=== PATIENT | male | born 1945 | race Caucasian/White ===

== ENCOUNTER 2016-04-07 20:39 | Inpatient (IN) | payer MEDICARE ==
[~2016-04-07] VITALS: Ht 172.7 cm; Wt 111.6 kg
[~2016-04-07 20:39] MED LIST: BYSTOLIC20 MG PO; DULO60CA6 PO; NAPR220C4 PO; OXYC1TAB7 PO; PAIN MEDICINE PO; TAMS0.4C2 PO
[2016-04-07] MEDS ORDERED: IV NORMAL SALINE 1000ML BAG 1,000 ML IV SCH (22:30)
[2016-04-07] MEDS: FENTANYL PF 100 MCG/2 ML VIAL. IV PRN (22:48)
[2016-04-07 23:15] VITALS: BP 150/79
[2016-04-07] MEDS ORDERED: INFLUENZA VAX SCREEN BY RX. MC ONE (23:45)
[2016-04-08 00:23] LABS: HEMATOCRIT 42.5 % (39.0-53.0); HEMOGLOBIN 13.9 g/dL (13.0-17.5); RED BLOOD COUNT 4.68 x10^6/uL (4.30-5.70); RED CELL DISTRIBUTION WIDTH 13.8 % (11.5-14.5); WHITE BLOOD COUNT 7.5 x10^3/uL (4.0-11.0)
[2016-04-08 00:31] LABS: CALCIUM 8.6 mg/dL (8.5-10.1); CREATININE 1.2 mg/dL (0.7-1.3); GFR 59.9; POTASSIUM 4.3 mmol/L (3.5-5.1)
[2016-04-08 00:51] LABS: INR 1.1 (0.8-1.1); PROTHROMBIN TIME PATIENT 13.1 SEC (11.7-14.0)
[2016-04-08] MEDS: FENTANYL PF 100 MCG/2 ML VIAL. IV PRN ×3 (01:23→18:38)
[2016-04-08 03:15] VITALS: BP 149/88
[2016-04-08 07:30] VITALS: BP 133/75
[2016-04-08 08:32] LABS: OBC FLU VALID
[2016-04-08] MEDS ORDERED: FLU VACC QUAD 2016-17 (36MOS+)/PF 0.5 ML SYRINGE. VAX IM ONE (09:00)
--- NOTE | 2016-04-08 09:04 | PDOC2 ---
GI CONSULT Reason For Consult: Unable to swallow HPI: HPI: 70 y/o male transferred from [facility]. Reports was eating chicken yesterday and midway through his meal was unable to initiate swallow. Denies globus, does not feel like food is stuck in esophagus/midchest. Wonders if starting meds for hip pain (records indication Percocet and Flexeril) could have caused symptoms, although had been tolerating both. Apparently was able to swallow liquids at [facility], then tried crackers and again felt like he couldn't "start" swallowing. Has been NPO here. H/o previous EGDs w/ dilation (believes at [facility] years ago) and admits to occasional dysphagia w/ solids but usually has the feeling that something is "stuck." Denies GERD, abd pain, weight loss, diarrhea, constipation, hematochezia/melena. CT head and CXR unrevealing at [facility]. Noted labs there show AST 217, [id number], Alk Phos 157. Last colonoscopy reportedly normal >10 years ago @ [facility]. PMH: PMH: HTN, depression, nephrolithiasis, appendectomy, cholecystectomy, left nephrectomy, splenectomy, ureteroscopy w/ stent and lithotripsy, adhesiolysis, left knee replacement, finger surgery, tonsillectomy Social History: Smoke: No ALCOHOL: none Drugs: None ROS: GEN: Denies fevers, chills, sweats HEENT: Denies blurred vision, sore throat CV: Denies chest pain RESP: Denies shortness of air, cough GI: Per HPI : Denies hematuria, dysuria ENDO: Denies weight changes NEURO: Denies confusion, dizziness MSK: Denies weakness, joint pain/swelling SKIN: Denies jaundice, pruritus VItals: Vitals: Vital Signs Date Time Temp Pulse Resp B/P Pulse Ox O2 Delivery O2 Flow Rate FiO2 04/08/16 07:30 97.7 65 18 133/75 95 Nasal Cannula 2.0 97.7 Labs: Labs: Laboratory Tests Test 04/07/16 23:44 04/08/16 07:00 White Blood Count 7.5x10^3/uL (4.0-11.0) Red Blood Count 4.68x10^6/uL (4.30-5.70) Hemoglobin 13.9g/dL (13.0-17.5) Hematocrit 42.5% (39.0-53.0) Mean Corpuscular Volume 91fL (79-100) Mean Corpuscular Hemoglobin 30pg (25-35) Mean Corpuscular Hemoglobin Concent 33g/dL (31-37) Red Cell Distribution Width 13.8% (11.5-14.5) Platelet Count 424x10^3/uL (140-400) Prothrombin Time 13.1SEC (11.7-14.0) Prothromb Time International Ratio 1.1 (0.8-1.1) Sodium Level 144mmol/L (136-145) Potassium Level 4.3mmol/L (3.5-5.1) Chloride Level 109mmol/L (98-107) Carbon Dioxide Level 30mmol/L (21-32) Anion Gap 5 (6-14) Blood Urea Nitrogen 17mg/dL (8-26) Creatinine 1.2mg/dL (0.7-1.3) Estimated GFR (Cockcroft-Gault) 59.9 Glucose Level 104mg/dL (70-99) Calcium Level 8.6mg/dL (8.5-10.1) Influenza Type A Antigen Negative (NEGATIVE) Influenza Type B Antigen Negative (NEGATIVE) Allergies: Coded Allergies: morphine (Verified Allergy, Mild, Palpitations, 04/07/16) metoclopramide (Verified Allergy, Unknown, THROAT SWELLED UP, 11/09/14) Medications: Current Medications Medications (Trade) Dose Ordered Sig/Basilio Route PRN Reason Start Time Stop Time Status Last Admin Dose Admin Fentanyl Citrate 25 mcg 25 mcg PRN Q2HR PRN IV PAIN 04/07/16 22:30 04/08/16 03:45 Sodium Chloride (Iv Sodium Chloride 0.9% 1000ml Bag) 1,000 ml @ 75 mls/hr [id number] IV 04/07/16 22:30 04/07/16 22:49 Imaging: Imaging: Per HPI. PE: GEN: NAD HEENT: Atraumatic, PERRL LUNGS: CTAB HEART: RRR ABD: NABS, S/ND/NT, obese EXTREMITY: No edema SKIN: No rashes, no jaundice NEURO/PSYCH: A & O 3 A/P: A/P: Dysphagia -sudden onset yesterday mid-meal, describes inability to initiate swallow -no globus/feeling of food bolus -tolerated liquids at [facility] but not crackers, has been NPO here -does admit to h/o dysphagia w/ solids, usually has the feeling that something is stuck -h/o esophageal dilation years ago, denies GERD -CT head ok Elevated LFTs Multiple abd surgeries CRC screen -reportedly normal >10 years ago -- D/w Dr. Tolbert. No emergent need for EGD - no obstruction if tolerating liquids. Okay to try clear liquids and ask for NUCLEAR TECHNICIAN eval. UPDATE EGD 12/28/[address] Peña: esophageal spasm, esophageal dilation to 50Fr, gastritis, prior pyloroplasty w/ mild deformity, normal small bowel. BRITTNEY PARIS Apr 08, 2016 09:04
[2016-04-08] MEDS ORDERED: BARIUM SULFATE 40% 148 GM PWD PO ONE (10:15)
[2016-04-08] MEDS ORDERED: MORPHINE SULFATE 4 MG/ML DISP.SYRIN. IV PRN (10:15)
--- NOTE | 2016-04-08 10:17 | PDOC1 ---
History and Physical Date of Admission Date of Admission DATE: 04/08/16 TIME: 10:11 Identification/Chief Complaint Chief Complaint unable to swallow Source Source: Caregiver, Chart review, Patient History of Present Illness History of Present Illness Mr. Khan, is a 70 y/o male transferred from [facility]. He has history of esoph stricture req. dilation from years ago. Yesterday, he could not swallow chicken. He felt some fullness in his neck, and was unable to initiate a swallow no pain, no nausea, did not vomiting, His says he sometimes spits up water like he has choked on it when he sits in his recliner. no weight loss, complains of severe right hip pain, had been sched for MRI hip, prior CT irreg, pain 08/01 hip Past Medical History Cardiovascular: HTN Psych: Depression (?, on cymbalta, does not report for pain) Musculoskeletal: Osteoarthritis (right hip pain, ) Family History Family History: No Significant Social History Smoke: No ALCOHOL: none Drugs: None Current Medications Current Medications Current Medications Fentanyl Citrate 25 mcg 25 mcg PRN Q2HR PRN IV PAIN Last administered on 03:45; Start 04/07/16 at 22:30 Sodium Chloride (Iv Sodium Chloride 0.9% 1000ml Bag) 1,000 ml @ 75 mls/hr [id number] IV Last administered on 04/07/16 22:49; Start 04/07/16 at 22:30 Info (Do NOT chart on this placeholder) 0.5 each 1X ONCE MC ; Start 04/07/16 at 23:45; Stop 04/07/16 at 23:46; Status UNV Influenza Virus Vaccine Quadrival (Fluarix Quad [id number] Syringe) 0.5 ml ONCE ONCE VAX IM ; Start 04/08/16 at 09:00; Stop 04/08/16 at 09:01; Status DC Active Scripts Active Reported [Pain Medicine] PO PRN PRN Aleve (Naproxen Sodium) 220 Mg Capsule 220 Mg PO PRN DAILY Cymbalta (Duloxetine Hcl) 60 Mg Capsule.dr 60 Mg PO DAILY Bystolic (Nebivolol Hcl) 20 Mg Tablet 20 Mg PO DAILY Tamsulosin Hcl 0.4 Mg Cap.er.24h 0.4 Mg PO DAILY Allergies Allergies: Coded Allergies: morphine (Verified Allergy, Mild, Palpitations, 2/14/17) metoclopramide (Verified Allergy, Unknown, THROAT SWELLED UP, 11/09/14) ROS General: No: Appetite, Chills, Fatigue, Malaise, Night Sweats, Other PSYCHOLOGICAL ROS: No: Anxiety, Behavioral Disorder, Concentration difficultie , Decreased libido, Depression, Disorientation, Hallucinations, Hostility, Irritablity, Memory difficulties, Mood Swings, Obsessive thoughts, Other, Physical abuse, Sexual abuse, Sleep disturbances, Suicidal ideation Eyes: No Blurry vision, No Decreased vision, No Double vision, No Dry eyes, No Excessive tearing, No Eye Pain, No Itchy Eyes, No Loss of vision, No Other, No Photophobia, No Scotomata, No Uses contacts, No Uses glasses HEENT: YES: Heacaches, No: Epistaxis, Hearing change, Nasal congestion, Nasal discharge, Oral lesions, Other, Sinus pain, Sneezing, Snoring, Sore Throat, Tinnitus, Vertigo, Visual Changes, Vocal changes ENDOCRINE: No: Breast Changes, Galactorrhea, Hair Pattern Changes, Hot Flashes , Malaise/lethargy, Mood Swings, Other, Palpitations, Polydipsia/polyuria, Skin Changes, Temperature Intolerance, Unexpected Weight Changes Respiratory: No: Cough, Hemoptysis, Orthopnea, Other, Pleuritic Pain, SOB with excertion, Shortness of breath, Sputum Changes, Stridor, Tachypnea, Wheezing Cardiovascular: No Chest Pain, No Edema, No Lt Headedness, No Orthopnea, No Other, No Palpitations, No Paroxysmal Noc. Dyspnea Musculoskeletal: Yes Joint Pain, Yes Joint Stiffness, Yes Pain In: (right hip) Neurological: No Behavorial Changes, No Bowel/Bladder ControlChng, No Confusion , No Dizziness, No Gait Disturbance, No Headaches, No Impaired Coord/balance, No Memory Loss, No Numbness/Tingling, No Other, No Seizures, No Speech Problems , No Tremors, No Visual Changes, No Weakness Skin: No Acne, No Dry Skin, No Eczema, No Hair Changes, No Lumps, No Mole Changes, No Mottling, No Nail Changes, No Other, No Pruritus, No Rash, No Skin Lesion Changes Physical Exam General: Alert, Oriented X3, Cooperative, No acute distress HEENT: Atraumatic, PERRLA, EOMI, Other (op dry) Lungs: Normal air movement Heart: S1S2, no murmurs Abdomen: Normal bowel sounds (obese, NT), Soft Extremities: No cyanosis Skin: No breakdown, Other (dry turgor) Neuro: Normal gait, Normal speech Psych/Mental Status: Mental status NL, Mood NL Vitals Vitals Vital Signs Date Time Temp Pulse Resp B/P Pulse Ox O2 Delivery O2 Flow Rate FiO2 04/08/16 07:30 97.7 65 18 133/75 95 Nasal Cannula 2.0 97.7 Labs Labs Laboratory Tests Test 04/07/16 23:44 04/08/16 07:00 White Blood Count 7.5x10^3/uL (4.0-11.0) Red Blood Count 4.68x10^6/uL (4.30-5.70) Hemoglobin 13.9g/dL (13.0-17.5) Hematocrit 42.5% (39.0-53.0) Mean Corpuscular Volume 91fL (79-100) Mean Corpuscular Hemoglobin 30pg (25-35) Mean Corpuscular Hemoglobin Concent 33g/dL (31-37) Red Cell Distribution Width 13.8% (11.5-14.5) Platelet Count 424x10^3/uL (140-400) Prothrombin Time 13.1SEC (11.7-14.0) Prothromb Time International Ratio 1.1 (0.8-1.1) Sodium Level 144mmol/L (136-145) Potassium Level 4.3mmol/L (3.5-5.1) Chloride Level 109mmol/L (98-107) Carbon Dioxide Level 30mmol/L (21-32) Anion Gap 5 (6-14) Blood Urea Nitrogen 17mg/dL (8-26) Creatinine 1.2mg/dL (0.7-1.3) Estimated GFR (Cockcroft-Gault) 59.9 Glucose Level 104mg/dL (70-99) Calcium Level 8.6mg/dL (8.5-10.1) Influenza Type A Antigen Negative (NEGATIVE) Influenza Type B Antigen Negative (NEGATIVE) Laboratory Tests Test 04/07/16 23:44 04/08/16 07:00 White Blood Count 7.5x10^3/uL (4.0-11.0) Red Blood Count 4.68x10^6/uL (4.30-5.70) Hemoglobin 13.9g/dL (13.0-17.5) Hematocrit 42.5% (39.0-53.0) Mean Corpuscular Volume 91fL (79-100) Mean Corpuscular Hemoglobin 30pg (25-35) Mean Corpuscular Hemoglobin Concent 33g/dL (31-37) Red Cell Distribution Width 13.8% (11.5-14.5) Platelet Count 424x10^3/uL (140-400) Prothrombin Time 13.1SEC (11.7-14.0) Prothromb Time International Ratio 1.1 (0.8-1.1) Sodium Level 144mmol/L (136-145) Potassium Level 4.3mmol/L (3.5-5.1) Chloride Level 109mmol/L (98-107) Carbon Dioxide Level 30mmol/L (21-32) Anion Gap 5 (6-14) Blood Urea Nitrogen 17mg/dL (8-26) Creatinine 1.2mg/dL (0.7-1.3) Estimated GFR (Cockcroft-Gault) 59.9 Glucose Level 104mg/dL (70-99) Calcium Level 8.6mg/dL (8.5-10.1) Influenza Type A Antigen Negative (NEGATIVE) Influenza Type B Antigen Negative (NEGATIVE) VTE Prophylaxis Ordered VTE Prophylaxis Devices: Yes VTE Pharmacological Prophylaxi: Contraindicated (may need EGD) Assessment/Plan Assessment/Plan dysphagia globus sensation unable to swallow, GI consulted, Speech consulted, video ordered if warranted by Speech eval, obesity, BMI 37 Hip pain, consult ortho, may need MRI, primary care had ordered outpatient CARMEN FINCH MD Apr 08, 2016 10:17
[2016-04-08] MEDS ORDERED: IV DEXTROSE 5 %-0.45 % NACL 1,000 ML IV ONE (10:30)
[2016-04-08] MEDS ORDERED: KETOROLAC 15 MG/ML VIAL. IV ONE (10:30)
[2016-04-08] MEDS: DULOXETINE HCL 30 MG CAPSULE.DR. PO SCH (10:56)
[2016-04-08] MEDS: METOPROLOL TART IMMED RELEASE 50 MG TABLET PO SCH ×2 (10:57→21:14)
[2016-04-08] MEDS: TAMSULOSIN 0.4 MG CAP.ER.24H. PO SCH (10:57)
[2016-04-08] MEDS: OXYCODONE/APAP 7.5/325 TABLET. PO PRN ×3 (10:57→23:49)
[2016-04-08 11:00] VITALS: BP 118/76
[2016-04-08] MEDS ORDERED: CYCL10TA2 PO (11:38)
[2016-04-08] MEDS ORDERED: OXYC1TAB9 PO (11:38)
[2016-04-08] MEDS ORDERED: BARIUM SULFATE 60% 355 ML SUSP PO ONE (13:00)
[2016-04-08] MEDS ORDERED: BARIUM SULFATE 96% 397 GM ENEMA. PR ONE (13:00)
--- NOTE | 2016-04-08 14:04 | RAD ---
Video dysphasia study, 04/08/2016: History: Dysphasia, food sticking The swallowing mechanism was examined fluoroscopically in the lateral projection with the patient ingested a variety of food materials mixed with barium. 1.1 minutes of fluoroscopy time was utilized. One fluoroscopic video loop was recorded by a member of the speech Department. The patient demonstrated good oral control of the barium materials. There is normal transit of the majority of the barium through the cervical esophagus. One episode of minimal transient laryngeal penetration was noted with the thin liquid. No raul aspiration was seen. A normal mild cricopharyngeal impression upon the cervical esophagus was noted. The patient ingested the thicker materials and barium coated solids without difficulty. There are mild anterior cervical spurs in the lower cervical esophagus. IMPRESSION: No significant abnormality is detected.
--- NOTE | 2016-04-08 14:42 | RAD ---
Esophagram, 04/08/2016: History: Dysphagia, food gets stuck 2.5 minutes of fluoroscopy time was utilized for this exam. 9 static and dynamic fluoroscopic sequences were recorded. There is a mild posterior impression upon the lower cervical esophagus due to a prominent cervical spur. There is no obstruction to flow of the barium through the cervical esophagus. The esophageal peristalsis appears normal. No hiatal hernia or gastroesophageal reflux was demonstrated. There are surgical clips in the region of the proximal aspect of the stomach. IMPRESSION: No significant esophageal abnormality is detected.
[2016-04-08 15:10] VITALS: BP 124/61
[2016-04-08] MEDS: PANTOPRAZOLE 40 MG TABLET. PO SCH (15:30)
[2016-04-08 19:25] VITALS: BP 117/48
[2016-04-08 23:48] VITALS: BP 133/61
[2016-04-09 07:00] VITALS: BP 170/80
[2016-04-09] MEDS: PANTOPRAZOLE 40 MG TABLET. PO SCH (07:30)
[2016-04-09] MEDS: DULOXETINE HCL 30 MG CAPSULE.DR. PO SCH (07:34)
[2016-04-09] MEDS: TAMSULOSIN 0.4 MG CAP.ER.24H. PO SCH (07:35)
[2016-04-09] MEDS: METOPROLOL TART IMMED RELEASE 50 MG TABLET PO SCH ×2 (07:35→20:25)
[2016-04-09] MEDS: FENTANYL PF 100 MCG/2 ML VIAL. IV PRN ×2 (08:16→20:28)
--- NOTE | 2016-04-09 09:10 | RAD ---
Pelvis with right hip, 3 views, 04/09/2016: History: Hip pain Contrast material from a previous study is present in the colon partially obscuring the upper pelvis. There is moderate spurring along the lateral margins of both iliac bones. There is mild degenerative change at the symphysis pubis. Mild deformity of the right pubic bone is probably due to old trauma. There is mild narrowing of the hip joints with mild marginal spurring. No acute fracture or dislocation is identified. IMPRESSION: 1. Mild degenerative change at both hips. 2. No acute bony abnormality is detected.
[2016-04-09] MEDS ORDERED: CYCLOBENZAPRINE 10 MG TABLET. PO PRN ×2 (10:30→21:00)
[2016-04-09] MEDS ORDERED: ONDANSETRON PF 4 MG/2 ML VIAL. IV PRN (10:30)
[2016-04-09] MEDS ORDERED: ACETAMINOPHEN 500 MG TABLET PO PRN (10:30)
[2016-04-09] MEDS ORDERED: OXYCODONE/APAP 10/325 TABLET. PO PRN ×2 (10:30)
[2016-04-09 11:00] VITALS: BP 196/80
[2016-04-09] MEDS ORDERED: hydrALAZINE 20 MG/ML VIAL. IVP PRN (12:00)
[2016-04-09] MEDS ORDERED: IV RINGERS,LACTATED 1000ML 1,000 ML IV SCH (13:28)
[2016-04-09] MEDS: IV RINGERS,LACTATED 1000ML 1,000 ML IV SCH ×2 (13:34→21:34)
[2016-04-09] MEDS ORDERED: LIDOCAINE 1% 1 ML SYRINGE. ID PRN (13:45)
[2016-04-09] MEDS ORDERED: FENTANYL PF 100 MCG/2 ML VIAL. IV PRN ×2 (13:45)
[2016-04-09] MEDS ORDERED: MIDAZOLAM HCL 2 MG/2 ML VIAL. IV PRN (13:45)
--- NOTE | 2016-04-09 13:52 | RAD ---
Examination: MRI pelvis without contrast HISTORY Hip pain, right hip pain COMPARISON None available. TECHNIQUE Multiplanar, multisequence MR imaging of the pelvis were performed without contrast. Findings: The bilateral femoral heads within the acetabulum. There is no acute fracture/ dislocation identified. Mild to moderate joint space loss identified in the bilateral hip joints with a small osteophyte formation identified in the superior acetabulum bilaterally likely due to degeneration. The attachment of the bilateral hamstring tendons to the ischial tuberosity, attachment of the gluteal tendons to the greater trochanter, attachment of the bilateral iliopsoas tendon to the lesser trochanter, attachment of the rectus femoris tendons to the anterior inferior iliac spine grossly appears intact. There is minimal increased T2 signal identified just lateral to the greater trochanteric region at the site of attachment the gluteal tendons, right greater than left likely mild tendinosis. There is faint tiny focus of T2 signal identified lateral to the right greater trochanter, probably tiny bursal fluid. The bilateral sciatic nerves grossly appears unremarkable. The urinary bladder is mildly distended. Moderate enlarged prostate gland. IMPRESSION 1. No acute osseous findings. 2. Minimal increased T2 signal identified lateral to the greater trochanter probable mild tendinosis. There is a tiny focus of T2 signal identified lateral to the greater trochanter region on the right could be minimal trochanteric bursal fluid. Electronically signed by: Papito Huddleston (Apr 09, 2016 13:52:02)
[2016-04-09] MEDS ORDERED: PROPOFOL 0 ML IV ONE (13:57)
--- NOTE | 2016-04-09 14:11 | PDOC4 ---
Operative Note Operative Note EGD with dilation Meds propofol per anesthesia Pre-op dx dysphagia/hx esophageal stricture Post op dx- Schatzki ring S/p 54 FR Piper dilation non-erosive gastritis Plan resume diet and activity may release home when tolerating po CHERELLE VALENZUELA MD Apr 09, 2016 14:11
[2016-04-09 15:00] VITALS: BP 131/60
--- NOTE | 2016-04-09 15:20 | PDOC ---
PROGRESS NOTES Chief Complaint Chief Complaint s/p EGD with dilatation Obesity HTN OA,. left hip s/p recent injection History of Present Illness History of Present Illness s/p EGD with dilattaion and eating fine Wants to go home but left hip is bothersome HAd recent injection 1 week, no relief Took 3x the hydrocodones and flexeril given by ER, no avail Awaiting Bone scan MRI reviewed, OA with mild fluid, possible Plan Await Bone scan Trial of lidoderm patch? Await further recs from ortho if any Did discuss about giving time for meds to work including his PO flexeril and pO hydrocodones from er dw RN Time 30 mins Vitals Vitals Vital Signs Date Time Temp Pulse Resp B/P Pulse Ox O2 Delivery O2 Flow Rate FiO2 04/09/16 14:36 98.4 79 20 121/63 99 Nasal Cannula 2.0 98.4 Physical Exam General: Alert, Oriented X3, Cooperative, No acute distress Heart: Regular rate Lungs: Clear Abdomen: Normal bowel sounds (obese, NT), Soft Extremities: No cyanosis Skin: No breakdown, Other (dry turgor) Review of Systems Review of Systems left hip pain no cp, soa, abd pain Assessment and Plan Assessmemt and Plan Problems Medical Problems: (1) Dysphagia, unspecified Status: Acute Problems: Comment Review of Relevant I have reviewed the following items michael (where applicable) has been applied. Labs Laboratory Tests Test 04/07/16 23:44 04/08/16 07:00 White Blood Count 7.5x10^3/uL (4.0-11.0) Red Blood Count 4.68x10^6/uL (4.30-5.70) Hemoglobin 13.9g/dL (13.0-17.5) Hematocrit 42.5% (39.0-53.0) Mean Corpuscular Volume 91fL (79-100) Mean Corpuscular Hemoglobin 30pg (25-35) Mean Corpuscular Hemoglobin Concent 33g/dL (31-37) Red Cell Distribution Width 13.8% (11.5-14.5) Platelet Count 424x10^3/uL (140-400) Prothrombin Time 13.1SEC (11.7-14.0) Prothromb Time International Ratio 1.1 (0.8-1.1) Sodium Level 144mmol/L (136-145) Potassium Level 4.3mmol/L (3.5-5.1) Chloride Level 109mmol/L (98-107) Carbon Dioxide Level 30mmol/L (21-32) Anion Gap 5 (6-14) Blood Urea Nitrogen 17mg/dL (8-26) Creatinine 1.2mg/dL (0.7-1.3) Estimated GFR (Cockcroft-Gault) 59.9 Glucose Level 104mg/dL (70-99) Calcium Level 8.6mg/dL (8.5-10.1) Influenza Type A Antigen Negative (NEGATIVE) Influenza Type B Antigen Negative (NEGATIVE) Medications Current Medications Fentanyl Citrate 25 mcg 25 mcg PRN Q2HR PRN IV PAIN Last administered on 08:16; Start 04/07/16 at 22:30 Sodium Chloride (Iv Sodium Chloride 0.9% 1000ml Bag) 1,000 ml @ 75 mls/hr [id number] IV Last administered on 04/07/16 22:49; Start 04/07/16 at 22:30; Stop 04/08/16 at 10:12; Status DC Info (Do NOT chart on this placeholder) 0.5 each 1X ONCE MC ; Start 04/07/16 at 23:45; Stop 04/07/16 at 23:46; Status UNV Influenza Virus Vaccine Quadrival (Fluarix Quad [id number] Syringe) 0.5 ml ONCE ONCE VAX IM Last administered on 04/08/16 10:32; Start 04/08/16 at 09:00; Stop 04/08/16 at 09:01; Status DC Morphine Sulfate 4 mg PRN Q2HR PRN IV PAIN; Start 04/08/16 at 10:15; Status Cancel Ketorolac Tromethamine (Toradol) 15 mg 1X ONCE IV Last administered on 10:56; Start 04/08/16 at 10:30; Stop 04/08/16 at 10:31; Status DC Barium Sulfate (Varibar Thin Liquid) 148 gm 1X ONCE PO Last administered on 14:01; Start 04/08/16 at 10:15; Stop 04/08/16 at 10:16; Status DC Tamsulosin HCl (Flomax) 0.4 mg DAILY PO Last administered on 04/08/16 10:57; Start 04/08/16 at 11:00 Duloxetine HCl (Cymbalta) 60 mg DAILY PO Last administered on 04/08/16 10:56; Start 04/08/16 at 11:00 Metoprolol Tartrate (Lopressor) 50 mg BID PO Last administered on 04/08/16 21: 14; Start 04/08/16 at 11:00 Oxycodone/ Acetaminophen (Percocet 7.5/ 325) 1 tab PRN Q4HRS PRN PO PAIN Last administered on 04/08/16 23:49; Start 04/08/16 at 10:30; Stop 04/09/16 at 10:34 ; Status DC Pantoprazole Sodium (Protonix) 40 mg DAILYAC PO Last administered on 04/08/16 15:30; Start 04/08/16 at 13:00 Barium Sulfate (Polibar Acb) 397 gm 1X ONCE NV Last administered on 04/08/16 13:00; Start 04/08/16 at 13:00; Stop 04/08/16 at 13:01; Status DC Barium Sulfate (Liquid E-Z Paque) 355 ml 1X ONCE PO Last administered on 14:02; Start 04/08/16 at 13:00; Stop 04/08/16 at 13:01; Status DC Ondansetron HCl (Zofran) 4 mg PRN Q6HRS PRN IV NAUSEA/VOMITING; Start 04/09/16 at 10:30 Acetaminophen (Tylenol) 500 mg PRN Q6HRS PRN PO MILD PAIN / TEMP; Start at 10:30 Cyclobenzaprine HCl (Flexeril) 10 mg PRN TID PRN PO MUSCLE PAIN; Start at 10:30 Oxycodone/ Acetaminophen (Percocet 10/325) 1 tab PRN TID PRN PO PAIN; Start at 10:30 Oxycodone/ Acetaminophen (Percocet 10/325) 2 tab TID PRN PO PAIN; Start at 10:30 Hydralazine HCl 10 mg 10 mg PRN Q4HRS PRN IVP ELEVATED BP, SEE COMMENTS Last administered on 04/09/16 12:02; Start 04/09/16 at 12:00 Lactated Ringer's (Iv Lactated Ringers) 1,000 ml @ 50 mls/hr Q20H IV Last administered on 04/09/16t 13:46; Start 04/09/16 at 13:28; Stop 04/10/16 at 01:27 Midazolam HCl (Versed) 2 mg PRN 1X PRN IV PRIOR TO PROCEDURE; Start 04/09/16 at 13:45; Stop 04/09/16 at 20:00 Fentanyl Citrate (Fentanyl 2ml Vial) 25 mcg PRN Q5MIN PRN IV X 2 DOSES FOR PAIN ; Start 04/09/16 at 13:45; Stop 04/09/16 at 20:00 Fentanyl Citrate 50 mcg 50 mcg PRN Q5MIN PRN IV X 2 DOSES FOR PAIN; Start 04/09 at 13:45; Stop 04/09/16 at 20:00 Lactated Ringer's (Iv Lactated Ringers) 1,000 ml @ 125 mls/hr Q8H IV ; Start at 13:34; Stop 04/10/16 at 01:33 Lidocaine HCl 2 ml 2 ml 1X PRN PRN ID IV START; Start 04/09/16 at 13:45; Stop 04/09/16 at 20:00 Propofol (Diprivan) 0 ml @ As Directed STK-MED ONCE IV ; Start 04/09/16 at 13:57 ; Stop 04/09/16 at 13:58; Status DC Active Scripts Active Reported Cyclobenzaprine Hcl 10 Mg Tablet 1 Tab PO TID PRN Oxycodone-Acetaminophen 10-325 (Oxycodone Hcl/Acetaminophen) 1 Each Tablet 2 Tab PO TID PRN Oxycodone-Acetaminophen 10-325 (Oxycodone Hcl/Acetaminophen) 1 Each Tablet 1 Tab PO TID PRN [Pain Medicine] PO PRN PRN Aleve (Naproxen Sodium) 220 Mg Capsule 220 Mg PO PRN DAILY Cymbalta (Duloxetine Hcl) 60 Mg Capsule.dr 60 Mg PO DAILY Bystolic (Nebivolol Hcl) 20 Mg Tablet 20 Mg PO DAILY Tamsulosin Hcl 0.4 Mg Cap.er.24h 0.4 Mg PO DAILY Vitals/I & O Vital Sign - Last 24 Hours 04/08/16 04/08/16 04/08/16 04/08/16 18:32 18:38 19:25 20:00 Temp 97.7 97.7 Pulse 56 Resp 20 20 16 B/P 117/48 Pulse Ox 95 94 O2 Delivery Room Air Room Air Nasal Cannula Room Air O2 Flow Rate 2.0 2.0 04/08/16 04/08/16 04/08/16 04/09/16 21:14 23:48 23:49 00:49 Temp 98.1 98.1 Pulse 50 Resp 16 18 B/P 117/48 133/61 Pulse Ox 94 96 96 O2 Delivery Nasal Cannula Room Air Room Air O2 Flow Rate 2.0 04/09/16 04/09/16 04/09/16 04/09/16 03:47 07:00 08:00 08:16 Temp 97.9 97.9 Pulse 55 Resp 14 16 B/P 170/80 Pulse Ox 93 93 O2 Delivery Nasal Cannula Nasal Cannula Room Air Room Air O2 Flow Rate 2.0 2.0 04/09/16 04/09/16 04/09/16 04/09/16 08:38 11:00 12:02 13:41 Temp 96.6 96.6 Pulse 53 53 Resp 16 14 B/P 196/80 196/80 Pulse Ox 93 O2 Delivery Room Air Nasal Cannula Room Air O2 Flow Rate 2.0 2.0 04/09/16 04/09/16 04/09/16 13:43 14:12 14:36 Temp 99.4 98.4 98.4 99.4 98.4 98.4 Pulse 61 59 79 Resp 20 16 20 B/P 117/52 121/63 Pulse Ox 94 99 O2 Delivery Nasal Cannula Nasal Cannula O2 Flow Rate 2 2.0 Intake and Output 04/08/16 04/08/16 04/09/16 15:00 23:00 07:00 Intake Total 0 ml 360 ml Balance 0 ml 360 ml RODOLFO LORENZ MD Apr 09, 2016 15:20
--- NOTE | 2016-04-09 16:42 | RAD ---
Radionuclide bone scan, 04/09/2016: History: Hip pain Following IV injection of 26.6 mCi of technetium 99m MDP, whole body imaging was performed. No previous bone scan is available at this time for comparison purposes. The following findings are delineated: 1. 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 There is increased activity along the margins of the prostheses bilaterally. This can be normal if the knee prostheses are recent. Otherwise, the possibility of loosening or infection should be considered. Correlation with the surgical history is suggested. 2. The hip activity is symmetric. There is no evidence of recent fracture or a significant active process. 3. Mildly increased activity in both ankles and both first MTP joint levels is presumably arthritic. 4. Symmetrical increased activity at both shoulders and both sternoclavicular joints is presumably arthritic. 5. Activity of the radionuclide about the skeleton and major joints is otherwise unremarkable. 6. Normal right renal activity and bladder activity are seen. No left renal activity is identified. This suggests congenital, surgical or functional absence of the left kidney.
[2016-04-09 19:41] VITALS: BP 150/76
[2016-04-09] MEDS: LIDOCAINE (700MG/PATCH) PATCH. TD SCH (20:24)
[2016-04-09 23:25] VITALS: BP 136/70
[2016-04-10 07:00] VITALS: BP 152/71
--- NOTE | 2016-04-10 08:31 | PDOC ---
ORTHO PROGRESS NOTES Subjective No change in hip pain. Vitals Vital Signs Date Time Temp Pulse Resp B/P Pulse Ox O2 Delivery O2 Flow Rate FiO2 04/10/16 08:00 Room Air 04/10/16 07:00 97.9 52 18 152/71 94 2.0 97.9 X-Rays MRI, bone scan reviewed Notes A and A in bed TTP at R greater troch Assessment and Plan R abductor tendonitis/bursitis ok to go from my standpoint I will order outpatient PT too soon for repeat injection, f/u in my clinic in 5 wks RADHA MARRUFO II, MD Apr 10, 2016 08:31
--- NOTE | 2016-04-10 08:46 | RAD ---
PROCEDURE MRI of the lumbar spine without contrast 04/09/2016 HISTORY Low back pain which radiates down the right hip. TECHNIQUE Unenhanced T1 weighted and T2 weighted sagittal and axial inversion recovery sagittal images of the lumbar spine were obtained. FINDINGS Minimal S-shaped curvature of the thoracolumbar spine is seen. Degenerative signal changes and loss of height are seen involving the L4-5 and L5-S1 discs. Degenerative signal changes are seen within the marrow surrounding these discs. The conus medullaris is normal in morphology, position, and signal characteristics. At the T11-12 disc space there is a mild generalized disc bulge. Degenerative changes are seen involving the facet joints, left greater than right. These findings efface the anterior CSF without resulting in significant central spinal canal or neural foraminal stenosis. At the T12-L1 disc space there is a minimal generalized disc bulge. Degenerative changes are seen involving the facet joints, left greater than right. These findings when combined result in mild left-sided central spinal canal stenosis. Mild left neural foraminal stenosis is seen. The right neural foramina is patent. At the L1-2 disc space there is minimal generalized disc bulge. Degenerative changes are seen involving the facet joints bilaterally. These findings do not result in significant central spinal canal or neural foraminal stenosis. At the L2-3 disc space there is a mild generalized disc bulge. This is eccentric to the left. Degenerative changes are seen involving the facet joints bilaterally. There is moderate ligamentum flavum hypertrophy. These findings when combined result in mild central spinal canal stenosis. Mild left greater than right neural foraminal stenosis is seen. At the L3-4 disc space there is a moderate generalized disc bulge. Superimposed on this disc bulge is a right paracentral focal disc herniation which extrudes superiorly as a free disc fragment. This measures 1.1 x 0.6 x 0.5 centimeters in craniocaudal, transverse and AP dimensions. It extrudes to the mid L3 level. Degenerative changes are seen involving the facet joints bilaterally. There is moderate ligamentum flavum hypertrophy bilaterally. These findings when combined result in moderate to severe right greater than left central spinal canal stenosis. The extruded disc fragment appears to impinge to some degree upon the right L4 nerve root within the right lateral aspect of the central spinal canal. Mild right greater than left neural foraminal stenosis is seen. At the L4-5 disc space there is a mild generalized disc bulge. Degenerative changes are seen involving the facet joints bilaterally. There is mild ligamentum flavum hypertrophy bilaterally. These findings result in mild central spinal canal stenosis. Very mild bilateral neural foraminal stenosis is seen. At the L5-S1 disc space there is a mild generalized disc bulge. Degenerative changes are seen involving the facet joints bilaterally. There is mild ligamentum flavum hypertrophy. These findings result in mild central spinal canal stenosis. No neural foraminal stenosis is seen. IMPRESSION The changes of degenerative disc disease are seen throughout the lumbar spine. These findings result in mild left-sided central spinal canal stenosis at T12-L1, mild central spinal canal stenosis at L2-3, L4-5 and L5-S1 and moderate to severe right greater than left central spinal canal stenosis at L3-4. Multilevel predominantly mild neural foraminal stenosis is seen as outlined above. At the L3-4 disc space a superimposed right paracentral focal disc herniation is seen which extrudes superiorly as a free disc fragment. This appears to impinge to some degree upon the right L4 nerve root within the right lateral aspect of the central spinal canal as outlined above. Electronically signed by: Prabhu Sanders MD (Apr 10, 2016 08:44:38)
[2016-04-10] MEDS: LIDOCAINE (700MG/PATCH) PATCH. TD SCH (08:57)
[2016-04-10] MEDS: TAMSULOSIN 0.4 MG CAP.ER.24H. PO SCH (08:58)
[2016-04-10] MEDS: METOPROLOL TART IMMED RELEASE 50 MG TABLET PO SCH (08:58)
[2016-04-10] MEDS: DULOXETINE HCL 30 MG CAPSULE.DR. PO SCH (08:58)
[2016-04-10] MEDS: PANTOPRAZOLE 40 MG TABLET. PO SCH (08:58)
[2016-04-10] MEDS: FENTANYL PF 100 MCG/2 ML VIAL. IV PRN (08:59)
[2016-04-10] MEDS ORDERED: LIDO700A4 TP (10:09)
[2016-04-10 10:52] VITALS: BP 152/69
--- NOTE | 2016-04-10 11:39 | PDOC ---
Subjective: Subjective: Tolerating PO w/o dysphagia, ready to DC. Objective: Objective: Per RN - no GI concerns. Vital Signs: Vital Signs Date Time Temp Pulse Resp B/P Pulse Ox O2 Delivery O2 Flow Rate FiO2 04/10/16 10:52 97.9 47 18 152/69 94 Nasal Cannula 2.0 97.9 Imaging: EGD w/ dilation 04/09/16: Schatzki ring S/p 54 FR Piper dilation, non-erosive gastritis PE: GEN: NAD LUNGS: CTAB HEART: RRR ABD: S/ND/NT NEURO/PSYCH: A & O 3 A/P: Dysphagia - resolved s/p Schatzki's ring dilation -- Improved. DC per primary. Follow-up for repeat dilation PRN. BRITTNEY PARIS Apr 10, 2016 11:39 CHERELLE VALENZUELA MD Apr 10, 2016 11:55
--- NOTE | 2016-04-10 13:26 | PDOC3 ---
Discharge Summary Visit Information Date of Admission: Apr 07, 2016 Date of Discharge: Apr 10, 2016 Admitting Diagnosis Comment: s/p EGD with dilatation Obesity HTN OA,. left hip s/p recent injection Final Diagnosis Problems Medical Problems: (1) Dysphagia, unspecified Status: Acute (2) Hip pain Status: Acute Brief Hospital Course Allergies Allergies Coded Allergies Type Severity Reaction Last Updated Verified metoclopramide Allergy Severe THROAT SWELLED UP 04/09/16 Yes morphine Allergy Intermediate Palpitations 04/09/16 Yes Vital Signs Vital Signs Date Time Temp Pulse Resp B/P Pulse Ox O2 Delivery O2 Flow Rate FiO2 04/10/16 10:52 97.9 47 18 152/69 94 Nasal Cannula 2.0 97.9 Brief Hospital Course Mr. Fernandez is a 70 old male who looks younger than stated age, admitted for dysphagia underwent EGD with dilatation, eating well now,. BUt course remarkabel for left hip pain, needing ortho on board, Images done including mRI and bone scan - see results/ Results reviewed, Pt just had injection a week ago, too soon for another one, Advised ff up [address] Ramos Lidoderm patch tried, helps, will give some Rx DispO; home COnsults: gi and ortho Proc: EGD with dilatation Instructions ff up ortho 5 weeks Discharge Information Condition at Discharge: Improved, Stable Disposition/Orders: D/C to Home Scheduled Duloxetine Hcl (Cymbalta) 60 MG PO DAILY (Reported) Lidocaine (Lidoderm) 1 PATCH TP DAILY Naproxen Sodium (Aleve) 220 MG PO PRN DAILY (Reported) Nebivolol Hcl (Bystolic) 20 MG PO DAILY (Reported) Tamsulosin Hcl (Tamsulosin Hcl) 0.4 MG PO DAILY (Reported) Scheduled PRN ([Pain Medicine]) PO PRN PRN PRN PAIN (Reported) Cyclobenzaprine Hcl (Cyclobenzaprine Hcl) 1 TAB PO TID PRN PRN MUSCLE PAIN ( Reported) Oxycodone Hcl/Acetaminophen (Oxycodone-Acetaminophen 10-325) 1 TAB PO TID PRN PRN PAIN (Reported) Oxycodone Hcl/Acetaminophen (Oxycodone-Acetaminophen 10-325) 2 TAB PO TID PRN PRN PAIN (Reported) RODOLFO LORENZ MD Apr 10, 2016 13:26
--- NOTE | 2016-04-11 03:30 | CONS ---
DATE OF CONSULTATION: 04/09/2016 REFERRING PROVIDER: Dr. Galvan. CONSULTING PROVIDER: Saul Ramos MD REASON FOR CONSULTATION: Right hip pain. CHIEF COMPLAINT: Right lateral hip pain. HISTORY OF PRESENT ILLNESS: The patient is a very pleasant 70-year-old gentleman transferred initially from [facility] for esophageal stricture and right hip pain. He has been under the care of GI for the esophageal problem and I was asked to see him in consultation for his right hip pain. It has been going on for quite some time, it is worse with walking as well as lying on the affected side. The pain does radiate down his thigh laterally from time to time. No pain in his groin. Denies any pain distally. Denies any weakness in lower extremities. No abnormal sensations in bilateral lower extremities with the exception of the right hip pain. He had an injection laterally at his hip a couple days ago which only gave short term relief. No PT yet. ALLERGIES: REGLAN AND MORPHINE. PAST MEDICAL HISTORY: Hypertension and arthritis. MEDICATIONS: Reviewed, please see MRAD. FAMILY HISTORY: Noncontributory. SOCIAL HISTORY: No alcohol or tobacco. REVIEW OF SYSTEMS: Twelve point review of systems negative except as per HPI. PHYSICAL EXAMINATION: GENERAL: The patient is alert and oriented, in no acute distress. He is examined lying in hospital bed. HEENT: Head, normocephalic, atraumatic. Extraocular muscles are intact. CARDIOVASCULAR: Regular rate and rhythm. No edema in his lower extremities. LUNGS: Respirations are unlabored with symmetric chest rise. ABDOMEN: Soft, nondistended. EXTREMITIES: Examination of bilateral lower extremities reveals some very mild tenderness over his right greater trochanter. No pain with log rolling. No pain with impingement testing in either hip. Negative straight leg raise bilaterally. Dorsalis pedis 1+ and symmetric. EHL and FHL 5/5. Dorsiflexion and plantarflexion 5/5. Well-healed anterior midline skin incisions consistent with total knee arthroplasties. No tenderness at knees. IMAGING: X-rays are reviewed. 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 He does have degenerative disk disease in his lower lumbar spine. IMPRESSION: Hip abductor tendonitis versus possible tear. PLAN: We will get an MRI to evaluate this. We would most appropriately manage this as an outpatient. From my standpoint after the MRI he could be discharged and follow up with me in clinic. SAUL RAMOS MD DR: MICHELLE/joaquim JOB#: [id number] / [id number] ETTA
== END 2016-04-10 15:30 | disposition home or self-care (01) | DRG 392 ==
LOC: 6 SOUTH 22:00
PROVIDERS: ADMIT Internal Medicine; ATTEND Internal Medicine
PROC: 0D738ZZ Dilation of Lower Esophagus, Via Natural or Artificial Opening Endoscopic (ICD-10-PCS; principal; 2016-04-09 14:30)
DX: R13.10 Dysphagia, unspecified (principal); I10 Essential (primary) hypertension; F32.9 Major depressive disorder, single episode, unspecified; E66.9 Obesity, unspecified; M16.11 Unilateral primary osteoarthritis, right hip; Z96.652 Presence of left artificial knee joint; K29.70 Gastritis, unspecified, without bleeding; M77.9 Enthesopathy, unspecified; K22.2 Esophageal obstruction; Z68.37 Body mass index [BMI] 37.0-37.9, adult
CPT/HCPCS: 36415; 72148; 72195; 73502; 74220; 74230; 78306; 80048; 85027; 85610; 87804; 90686; 96374; A9503; J0360; J1885; J2704; J3010; J7030; J7120; 92611